=== PATIENT | male | born 1950 | race Caucasian/White ===

== ENCOUNTER 2017-08-20 20:16 | Inpatient (IN) | payer MEDICARE, MEDICAID ==
[~2017-08-20] VITALS: Ht 185.4 cm; Wt 129.6 kg
[2017-08-20 21:30] LABS: BASOPHILS % (AUTO) 0.3 % (0-1); EOSINOPHILS # (AUTO) 0.1 X10'3 (0-0.9); EOSINOPHILS % (AUTO) 2.2 % (0-6); HEMATOCRIT 25.7 % (42.0-52.0); HEMOGLOBIN 8.2 g/dl (14.0-17.9); LYMPHOCYTES # (AUTO) 0.3 X10'3 (1.1-4.8); LYMPHOCYTES % (AUTO) 8.5 % (21-51); MEAN CORPUSCULAR HEMOGLOBIN 26.5 PG (27.0-31.0); MEAN CORPUSCULAR HGB CONC 31.8 % (33.0-36.5); MEAN CORPUSCULAR VOLUME 83.2 FL (78-98); MONOCYTES # (AUTO) 0.5 X10'3 (0-0.9); MONOCYTES % (AUTO) 13.6 % (2-12); NEUTROPHILS # (AUTO) 2.9 X10'3 (1.8-7.7); NEUTROPHILS % (AUTO) 75.4 % (42-75); PLATELET COUNT 155 X10'3 (140-440); RED BLOOD COUNT 3.09 X10'6 (4.70-6.10); RED CELL DISTRIBUTION WIDTH 21.6 % (11.5-14.5); WHITE BLOOD COUNT 3.9 X10'3 (4.5-11.0)
[2017-08-20] MEDS ORDERED: doxycycline hyclate 100mg tablet.DR PO STA (21:37)
[2017-08-20] MEDS ORDERED: bacitracin 15gm ointment TP ONE (21:40)
[2017-08-20 21:48] LABS: ALANINE AMINOTRANSFERASE 17 U/L (12-78); ALBUMIN 2.8 G/DL (3.4-5.0); ALBUMIN/GLOBULIN RATIO 0.6 (1.1-1.5); ALKALINE PHOSPHATASE 146 IU/L (46-116); ANION GAP 12 (8-16); ASPARTATE AMINO TRANSFERASE 15 U/L (10-37); BILIRUBIN,TOTAL 1.4 MG/DL (0.1-1.0); BLOOD UREA NITROGEN 85 MG/DL (7-18); BUN/CREATININE RATIO 20.3 (5.4-32.0); CALCIUM 8.9 MG/DL (8.5-10.1); CHLORIDE 101 MMOL/L (99-107); CREATININE 4.19 MG/DL (0.60-1.10); GLUCOSE 120 MG/DL (70-104); SODIUM 139 MMOL/L (135-145); TOTAL CARBON DIOXIDE 26.2 MMOL/L (24-32); TOTAL PROTEIN 7.2 G/DL (6.4-8.2); eGFR 14 ML/MIN
[2017-08-20] MEDS ORDERED: haloperidol lactate 5mg/ml inj IM ONE (21:50)
[2017-08-20] MEDS ORDERED: diphenhydrAMINE 50 mg/ml inj IM ONE (21:50)
[2017-08-20] MEDS ORDERED: LORazepam 2 mg/ml vial IM ONE (21:50)
[2017-08-20 21:58] LABS: MAGNESIUM 2.2 MG/DL (1.5-2.4)
[2017-08-20] MEDS ORDERED: NORMAL SALINE IV STA (22:17)
[2017-08-20] MEDS ORDERED: ACYCLOVIR IV STA (22:17)
[2017-08-20] MEDS ORDERED: CefTRIAXone 2gm/D5W 50ml 50 ML IV ONE (22:20)
[2017-08-20] MEDS ORDERED: doxycycline hyclate 100mg tablet.DR PO ONE (23:00)
[2017-08-20] MEDS ORDERED: ondansetron/PF 4mg/2ml inj IV PRN (23:55)
[2017-08-20] MEDS ORDERED: magnesium hydroxide 30ml (MOM) UD suspension PO PRN (23:55)
[2017-08-20] MEDS ORDERED: acetaminophen 325mg tablet PO PRN (23:55)
[2017-08-20] MEDS ORDERED: mag hydrox/Alum hydrox/simeth 30ml oral suspension PO PRN (23:55)
[2017-08-21] VITALS (14 sets, daily range): BP systolic 106–150; BP diastolic 57–87
[2017-08-21] MEDS ORDERED: AMIO200T57 PO (01:44)
[2017-08-21] MEDS ORDERED: ASPI81TA30 PO (01:44)
[2017-08-21] MEDS ORDERED: FURO80TA3 PO (01:44)
[2017-08-21] MEDS ORDERED: GLIP5TAB13 PO (01:44)
[2017-08-21] MEDS ORDERED: CARV25TA2 PO (01:44)
[2017-08-21] MEDS ORDERED: GABA-532 PO (01:44)
[2017-08-21] MEDS ORDERED: ATOR-2 PO (01:44)
[2017-08-21] MEDS ORDERED: TAMS0.4C32 PO (01:44)
[2017-08-21] MEDS ORDERED: FINA5TAB11 PO (01:44)
[2017-08-21] MEDS ORDERED: CHOL400T14 PO (01:44)
[2017-08-21] MEDS ORDERED: INSU100V9 SQ (01:44)
[2017-08-21] MEDS ORDERED: dextrose 50%-water 50ml dispensing syringe IV PRN ×2 (02:05)
[2017-08-21] MEDS ORDERED: MESSAGE TO PHARMACY PO ONE (02:05)
[2017-08-21] MEDS ORDERED: glucagon, human recombinant 1mg kit SUBCUT PRN (02:05)
[2017-08-21] MEDS ORDERED: dextrose ORAL solution 15 GM/59 ML bottle PO PRN ×2 (02:05)
[2017-08-21 05:28] LABS: BASOPHILS % (AUTO) 0.5 % (0-1); EOSINOPHILS # (AUTO) 0.1 X10'3 (0-0.9); EOSINOPHILS % (AUTO) 3.2 % (0-6); HEMATOCRIT 23.1 % (42.0-52.0); HEMOGLOBIN 7.7 g/dl (14.0-17.9); LYMPHOCYTES # (AUTO) 0.3 X10'3 (1.1-4.8); LYMPHOCYTES % (AUTO) 7.8 % (21-51); MEAN CORPUSCULAR HEMOGLOBIN 27.5 PG (27.0-31.0); MEAN CORPUSCULAR HGB CONC 33.4 % (33.0-36.5); MEAN CORPUSCULAR VOLUME 82.4 FL (78-98); MEAN PLATELET VOLUME 7.8 FL (7.4-10.4); MONOCYTES # (AUTO) 0.6 X10'3 (0-0.9); MONOCYTES % (AUTO) 15.8 % (2-12); NEUTROPHILS # (AUTO) 2.9 X10'3 (1.8-7.7); NEUTROPHILS % (AUTO) 72.7 % (42-75); PLATELET COUNT 145 X10'3 (140-440); RED CELL DISTRIBUTION WIDTH 21.5 % (11.5-14.5)
[2017-08-21 05:49] LABS: HEMOGLOBIN A1C 6.5 % (4.5-6.2)
[2017-08-21 06:05] LABS: ALANINE AMINOTRANSFERASE 17 U/L (12-78); ALBUMIN 2.5 G/DL (3.4-5.0); ALBUMIN/GLOBULIN RATIO 0.6 (1.1-1.5); ALKALINE PHOSPHATASE 137 IU/L (46-116); ANION GAP 11 (8-16); ASPARTATE AMINO TRANSFERASE 14 U/L (10-37); BILIRUBIN,TOTAL 1.3 MG/DL (0.1-1.0); BLOOD UREA NITROGEN 87 MG/DL (7-18); BUN/CREATININE RATIO 20.3 (5.4-32.0); CHLORIDE 102 MMOL/L (99-107); CREATININE 4.29 MG/DL (0.60-1.10); GLUCOSE 155 MG/DL (70-104); POTASSIUM 3.8 MMOL/L (3.5-5.1); SODIUM 139 MMOL/L (135-145); TOTAL CARBON DIOXIDE 26.3 MMOL/L (24-32); TOTAL PROTEIN 6.7 G/DL (6.4-8.2); eGFR 14 ML/MIN
[2017-08-21] MEDS ORDERED: amiodarone 200mg tablet PO SCH (08:00)
[2017-08-21] MEDS: heparin, porcine 5000 units/ml vial SQ SCH ×2 (08:00→21:12)
[2017-08-21] MEDS ORDERED: finasteride 5mg tablet PO SCH (08:00)
[2017-08-21] MEDS ORDERED: carVEDilol 12.5mg tablet PO SCH ×2 (08:00)
[2017-08-21] MEDS ORDERED: tamsulosin 0.4mg capsule PO SCH (08:00)
[2017-08-21] MEDS: amiodarone 200mg tablet PO SCH (09:15)
[2017-08-21] MEDS: finasteride 5mg tablet PO SCH (09:16)
[2017-08-21] MEDS: aspirin 81mg tab.chew PO SCH (09:16)
[2017-08-21] MEDS: atorvastatin 20mg tablet PO SCH (09:16)
[2017-08-21] MEDS: ciprofloxacin 250mg tablet PO SCH (12:56)
[2017-08-21] MEDS ORDERED: FISH1CAP15 PO (13:22)
[2017-08-21] MEDS: DOBUTamine-DoBUTrex 500mg/D5W 250 ML IV SCH (20:52)
[2017-08-21] MEDS: insulin glargine (Lantus) pen - multi-dose SQ SCH (21:00)
[2017-08-21] MEDS: tamsulosin 0.4mg capsule PO SCH (21:10)
[2017-08-21] MEDS: carVEDilol 12.5mg tablet PO SCH (21:12)
[2017-08-21] MEDS: furosemide 20 MG/2 ML vial IV SCH (21:18)
[2017-08-22] VITALS (12 sets, daily range): BP systolic 107–157; BP diastolic 54–94
[2017-08-22] MEDS: ciprofloxacin 250mg tablet PO SCH (05:28)
[2017-08-22 06:04] LABS: BASOPHILS % (AUTO) 0.6 % (0-1); EOSINOPHILS # (AUTO) 0.1 X10'3 (0-0.9); EOSINOPHILS % (AUTO) 2.2 % (0-6); HEMATOCRIT 22.7 % (42.0-52.0); HEMOGLOBIN 7.4 g/dl (14.0-17.9); LYMPHOCYTES # (AUTO) 0.3 X10'3 (1.1-4.8); LYMPHOCYTES % (AUTO) 5.8 % (21-51); MEAN CORPUSCULAR HEMOGLOBIN 27.1 PG (27.0-31.0); MEAN CORPUSCULAR HGB CONC 32.6 % (33.0-36.5); MEAN CORPUSCULAR VOLUME 83.1 FL (78-98); MEAN PLATELET VOLUME 8.1 FL (7.4-10.4); MONOCYTES # (AUTO) 0.6 X10'3 (0-0.9); NEUTROPHILS # (AUTO) 3.4 X10'3 (1.8-7.7); NEUTROPHILS % (AUTO) 77.4 % (42-75); PLATELET COUNT 146 X10'3 (140-440); RED BLOOD COUNT 2.73 X10'6 (4.70-6.10); RED CELL DISTRIBUTION WIDTH 21.7 % (11.5-14.5); WHITE BLOOD COUNT 4.4 X10'3 (4.5-11.0)
[2017-08-22 06:18] LABS: ALANINE AMINOTRANSFERASE 13 U/L (12-78); ALBUMIN 2.5 G/DL (3.4-5.0); ALBUMIN/GLOBULIN RATIO 0.6 (1.1-1.5); ALKALINE PHOSPHATASE 130 IU/L (46-116); ANION GAP 12 (8-16); ASPARTATE AMINO TRANSFERASE 12 U/L (10-37); BILIRUBIN,TOTAL 1.4 MG/DL (0.1-1.0); BLOOD UREA NITROGEN 82 MG/DL (7-18); BUN/CREATININE RATIO 20.3 (5.4-32.0); CALCIUM 8.8 MG/DL (8.5-10.1); CHLORIDE 102 MMOL/L (99-107); CREATININE 4.03 MG/DL (0.60-1.10); GLUCOSE 140 MG/DL (70-104); POTASSIUM 3.5 MMOL/L (3.5-5.1); SODIUM 139 MMOL/L (135-145); TOTAL CARBON DIOXIDE 25.3 MMOL/L (24-32); TOTAL PROTEIN 6.7 G/DL (6.4-8.2); eGFR 15 ML/MIN
[2017-08-22] MEDS: furosemide 20 MG/2 ML vial IV SCH ×2 (08:27→19:49)
[2017-08-22] MEDS: amiodarone 200mg tablet PO SCH (08:28)
[2017-08-22] MEDS: finasteride 5mg tablet PO SCH (08:29)
[2017-08-22] MEDS: atorvastatin 20mg tablet PO SCH (08:29)
[2017-08-22] MEDS: carVEDilol 12.5mg tablet PO SCH ×2 (08:29→19:49)
[2017-08-22] MEDS: aspirin 81mg tab.chew PO SCH (08:29)
[2017-08-22] MEDS: tamsulosin 0.4mg capsule PO SCH (19:49)
[2017-08-22] MEDS: DOBUTamine-DoBUTrex 500mg/D5W 250 ML IV SCH (19:49)
[2017-08-22] MEDS: insulin glargine (Lantus) pen - multi-dose SQ SCH (21:00)
[2017-08-23] VITALS (8 sets, daily range): BP systolic 131–148; BP diastolic 63–90
[2017-08-23] MEDS: ciprofloxacin 250mg tablet PO SCH ×2 (00:12→19:12)
[2017-08-23 05:48] LABS: BASOPHILS % (AUTO) 0.5 % (0-1); EOSINOPHILS % (AUTO) 0 % (0-6); HEMATOCRIT 22.9 % (42.0-52.0); HEMOGLOBIN 7.5 g/dl (14.0-17.9); LYMPHOCYTES # (AUTO) 0.3 X10'3 (1.1-4.8); LYMPHOCYTES % (AUTO) 5.5 % (21-51); MEAN CORPUSCULAR HEMOGLOBIN 27.1 PG (27.0-31.0); MEAN CORPUSCULAR HGB CONC 32.7 % (33.0-36.5); MEAN CORPUSCULAR VOLUME 82.9 FL (78-98); MEAN PLATELET VOLUME 7.8 FL (7.4-10.4); MONOCYTES # (AUTO) 0.7 X10'3 (0-0.9); MONOCYTES % (AUTO) 13.9 % (2-12); NEUTROPHILS # (AUTO) 3.8 X10'3 (1.8-7.7); NEUTROPHILS % (AUTO) 80.1 % (42-75); PLATELET COUNT 146 X10'3 (140-440); RED BLOOD COUNT 2.76 X10'6 (4.70-6.10); RED CELL DISTRIBUTION WIDTH 21.4 % (11.5-14.5); WHITE BLOOD COUNT 4.8 X10'3 (4.5-11.0)
[2017-08-23 05:51] LABS: ALANINE AMINOTRANSFERASE 15 U/L (12-78); ALBUMIN 2.5 G/DL (3.4-5.0); ALBUMIN/GLOBULIN RATIO 0.6 (1.1-1.5); ALKALINE PHOSPHATASE 131 IU/L (46-116); ANION GAP 10 (8-16); ASPARTATE AMINO TRANSFERASE 11 U/L (10-37); BILIRUBIN,TOTAL 1.3 MG/DL (0.1-1.0); BLOOD UREA NITROGEN 75 MG/DL (7-18); BUN/CREATININE RATIO 20.3 (5.4-32.0); CALCIUM 8.6 MG/DL (8.5-10.1); CHLORIDE 103 MMOL/L (99-107); GLUCOSE 167 MG/DL (70-104); POTASSIUM 3.4 MMOL/L (3.5-5.1); SODIUM 140 MMOL/L (135-145); TOTAL CARBON DIOXIDE 26.8 MMOL/L (24-32); TOTAL PROTEIN 6.7 G/DL (6.4-8.2); eGFR 17 ML/MIN
[2017-08-23] MEDS: finasteride 5mg tablet PO SCH (07:34)
[2017-08-23] MEDS: atorvastatin 20mg tablet PO SCH (07:34)
[2017-08-23] MEDS: aspirin 81mg tab.chew PO SCH (07:35)
[2017-08-23] MEDS: furosemide 20 MG/2 ML vial IV SCH ×2 (07:35→21:08)
[2017-08-23] MEDS: amiodarone 200mg tablet PO SCH (07:35)
[2017-08-23] MEDS: carVEDilol 12.5mg tablet PO SCH ×2 (07:35→20:55)
[2017-08-23] MEDS: DOBUTamine-DoBUTrex 500mg/D5W 250 ML IV SCH ×2 (09:00→13:13)
[2017-08-23] MEDS: insulin Lispro (HumaLOG) vial - multi-dose SQ SCH ×2 (13:21→19:46)
[2017-08-23] MEDS: lactobacillus rhamnosus 10,000 MMU CELLS/CAPSULE PO SCH (20:55)
[2017-08-23] MEDS: tamsulosin 0.4mg capsule PO SCH (20:56)
[2017-08-23] MEDS: insulin glargine (Lantus) pen - multi-dose SQ SCH (21:00)
[2017-08-24] VITALS (13 sets, daily range): BP systolic 111–146; BP diastolic 59–80
[2017-08-24 05:48] LABS: BASOPHILS % (AUTO) 0.7 % (0-1); EOSINOPHILS # (AUTO) 0.1 X10'3 (0-0.9); HEMATOCRIT 22.9 % (42.0-52.0); HEMOGLOBIN 7.4 g/dl (14.0-17.9); LYMPHOCYTES # (AUTO) 0.3 X10'3 (1.1-4.8); LYMPHOCYTES % (AUTO) 6.3 % (21-51); MEAN CORPUSCULAR HEMOGLOBIN 26.9 PG (27.0-31.0); MEAN CORPUSCULAR HGB CONC 32.5 % (33.0-36.5); MEAN CORPUSCULAR VOLUME 82.9 FL (78-98); MEAN PLATELET VOLUME 8.1 FL (7.4-10.4); MONOCYTES # (AUTO) 0.7 X10'3 (0-0.9); MONOCYTES % (AUTO) 15.8 % (2-12); NEUTROPHILS # (AUTO) 3.3 X10'3 (1.8-7.7); NEUTROPHILS % (AUTO) 74.2 % (42-75); PLATELET COUNT 148 X10'3 (140-440); RED BLOOD COUNT 2.76 X10'6 (4.70-6.10); RED CELL DISTRIBUTION WIDTH 21.3 % (11.5-14.5); WHITE BLOOD COUNT 4.4 X10'3 (4.5-11.0)
[2017-08-24 06:27] LABS: ALANINE AMINOTRANSFERASE 15 U/L (12-78); ALBUMIN 2.6 G/DL (3.4-5.0); ALBUMIN/GLOBULIN RATIO 0.6 (1.1-1.5); ALKALINE PHOSPHATASE 131 IU/L (46-116); ANION GAP 10 (8-16); ASPARTATE AMINO TRANSFERASE 14 U/L (10-37); BILIRUBIN,TOTAL 1.2 MG/DL (0.1-1.0); BLOOD UREA NITROGEN 71 MG/DL (7-18); BUN/CREATININE RATIO 20.2 (5.4-32.0); CHLORIDE 104 MMOL/L (99-107); CREATININE 3.51 MG/DL (0.60-1.10); GLUCOSE 154 MG/DL (70-104); POTASSIUM 3.3 MMOL/L (3.5-5.1); SODIUM 141 MMOL/L (135-145); TOTAL CARBON DIOXIDE 27.4 MMOL/L (24-32); TOTAL PROTEIN 6.7 G/DL (6.4-8.2); eGFR 18 ML/MIN
[2017-08-24] MEDS: DOBUTamine-DoBUTrex 500mg/D5W 250 ML IV SCH ×2 (07:40→18:00)
[2017-08-24] MEDS: amiodarone 200mg tablet PO SCH (08:03)
[2017-08-24] MEDS: aspirin 81mg tab.chew PO SCH (08:03)
[2017-08-24] MEDS: furosemide 20 MG/2 ML vial IV SCH ×2 (08:03→20:38)
[2017-08-24] MEDS: atorvastatin 20mg tablet PO SCH (08:04)
[2017-08-24] MEDS: lactobacillus rhamnosus 10,000 MMU CELLS/CAPSULE PO SCH ×2 (08:04→20:38)
[2017-08-24] MEDS: finasteride 5mg tablet PO SCH (08:05)
[2017-08-24] MEDS: carVEDilol 12.5mg tablet PO SCH ×2 (08:06→20:38)
[2017-08-24] MEDS: insulin Lispro (HumaLOG) vial - multi-dose SQ SCH ×3 (08:25→19:28)
[2017-08-24] MEDS ORDERED: magnesium Cl slow-release 64mg tablet PO PRN (10:15)
[2017-08-24] MEDS ORDERED: potassium Cl 20 mEq SR tablet PO PRN (10:15)
[2017-08-24] MEDS ORDERED: magnesium 4gm in 100ml NS 100 ML IV PRN (10:15)
[2017-08-24] MEDS ORDERED: potassium Cl 40MEQ/NS 500ml 500 ML IV PRN ×2 (10:15)
[2017-08-24] MEDS ORDERED: magnesium/D5W IVPB 100 ML IV PRN (10:15)
[2017-08-24] MEDS: potassium Cl 20 mEq SR tablet PO PRN ×2 (11:37→19:35)
[2017-08-24] MEDS: ciprofloxacin 250mg tablet PO SCH (11:37)
[2017-08-24 11:43] LABS: ANISOCYTOSIS 3+; PLATELET ESTIMATE NORMAL
[2017-08-24 11:44] LABS: BURR CELLS FEW; ELLIPTOCYTES FEW; SCHISTOCYTES FEW; STOMATOCYTES FEW
[2017-08-24] MEDS: tamsulosin 0.4mg capsule PO SCH (20:38)
[2017-08-24] MEDS: insulin glargine (Lantus) pen - multi-dose SQ SCH (20:50)
[2017-08-25] MEDS: potassium Cl 20 mEq SR tablet PO PRN (01:27)
[2017-08-25 02:00] VITALS: BP 124/73
[2017-08-25 06:00] VITALS: BP 136/80
[2017-08-25 06:11] LABS: ALANINE AMINOTRANSFERASE 14 U/L (12-78); ALBUMIN 2.6 G/DL (3.4-5.0); ALBUMIN/GLOBULIN RATIO 0.6 (1.1-1.5); ALKALINE PHOSPHATASE 133 IU/L (46-116); ANION GAP 9 (8-16); ASPARTATE AMINO TRANSFERASE 14 U/L (10-37); BILIRUBIN,TOTAL 1.2 MG/DL (0.1-1.0); BLOOD UREA NITROGEN 68 MG/DL (7-18); BUN/CREATININE RATIO 19.4 (5.4-32.0); CHLORIDE 105 MMOL/L (99-107); GLUCOSE 128 MG/DL (70-104); POTASSIUM 3.8 MMOL/L (3.5-5.1); SODIUM 141 MMOL/L (135-145); TOTAL CARBON DIOXIDE 26.6 MMOL/L (24-32); TOTAL PROTEIN 6.8 G/DL (6.4-8.2); eGFR 18 ML/MIN
[2017-08-25 06:23] LABS: BASOPHILS % (AUTO) 0.8 % (0-1); EOSINOPHILS # (AUTO) 0.3 X10'3 (0-0.9); EOSINOPHILS % (AUTO) 5.5 % (0-6); HEMATOCRIT 24.9 % (42.0-52.0); LYMPHOCYTES # (AUTO) 0.3 X10'3 (1.1-4.8); MEAN CORPUSCULAR HEMOGLOBIN 26.9 PG (27.0-31.0); MEAN CORPUSCULAR HGB CONC 32.1 % (33.0-36.5); MEAN CORPUSCULAR VOLUME 83.7 FL (78-98); MEAN PLATELET VOLUME 8.4 FL (7.4-10.4); MONOCYTES # (AUTO) 0.7 X10'3 (0-0.9); MONOCYTES % (AUTO) 14.5 % (2-12); NEUTROPHILS # (AUTO) 3.4 X10'3 (1.8-7.7); NEUTROPHILS % (AUTO) 72.2 % (42-75); PLATELET COUNT 145 X10'3 (140-440); RED BLOOD COUNT 2.97 X10'6 (4.70-6.10); RED CELL DISTRIBUTION WIDTH 19.9 % (11.5-14.5); WHITE BLOOD COUNT 4.7 X10'3 (4.5-11.0)
[2017-08-25] MEDS: carVEDilol 12.5mg tablet PO SCH (07:06)
[2017-08-25] MEDS: amiodarone 200mg tablet PO SCH (07:07)
[2017-08-25] MEDS: ciprofloxacin 250mg tablet PO SCH (07:08)
[2017-08-25] MEDS: lactobacillus rhamnosus 10,000 MMU CELLS/CAPSULE PO SCH (07:08)
[2017-08-25] MEDS: atorvastatin 20mg tablet PO SCH (07:09)
[2017-08-25] MEDS: furosemide 20 MG/2 ML vial IV SCH (07:09)
[2017-08-25] MEDS: finasteride 5mg tablet PO SCH (08:56)
[2017-08-25] MEDS: aspirin 81mg tab.chew PO SCH (08:56)
[2017-08-25] MEDS: insulin Lispro (HumaLOG) vial - multi-dose SQ SCH ×2 (08:58→13:03)
[2017-08-25] MEDS ORDERED: diphenhydrAMINE 25 MG/10 ML UD oral solution PO PRN (10:20)
[2017-08-25 11:00] VITALS: BP 115/67
[2017-08-25] MEDS ORDERED: FURO20TA4 PO (14:45)
[2017-08-25] MEDS ORDERED: APIX5TAB3 PO (14:45)
[2017-08-25] MEDS ORDERED: CARV-50 PO (14:45)
[2017-08-25 15:00] VITALS: BP 129/74
[2017-08-25] MEDS ORDERED: insulin glargine (Lantus) pen - multi-dose SQ SCH (21:00)
== END 2017-08-25 16:30 | disposition home health service (06) | DRG 682 ==
LOC: ER 20:16 → ED HOLD 23:55 → EDBEDREQ 08-21 00:18 → PCU 3S 08-21 00:30
PROVIDERS: ADMIT Internal Medicine; ATTEND Internal Medicine
PROC: 5A09357 Assistance with Respiratory Ventilation, Less than 24 Consecutive Hours, Continuous Positive Airway Pressure (ICD-10-PCS; principal; 2017-08-23)
DX: N17.9 Acute kidney failure, unspecified (principal); I50.23 Acute on chronic systolic (congestive) heart failure; I13.0 Hypertensive heart and chronic kidney disease with heart failure and stage 1 through stage 4 chronic kidney disease, or unspecified chronic kidney disease; I42.9 Cardiomyopathy, unspecified; I48.0 Paroxysmal atrial fibrillation; I25.10 Atherosclerotic heart disease of native coronary artery without angina pectoris; E66.9 Obesity, unspecified; N18.9 Chronic kidney disease, unspecified; D64.9 Anemia, unspecified; E11.22 Type 2 diabetes mellitus with diabetic chronic kidney disease; R00.1 Bradycardia, unspecified; I08.1 Rheumatic disorders of both mitral and tricuspid valves; E78.5 Hyperlipidemia, unspecified; G47.30 Sleep apnea, unspecified; I27.20 Pulmonary hypertension, unspecified; M17.0 Bilateral primary osteoarthritis of knee; Z95.1 Presence of aortocoronary bypass graft; I25.2 Old myocardial infarction; Z88.2 Allergy status to sulfonamides; Z79.899 Other long term (current) drug therapy; Z79.82 Long term (current) use of aspirin; Z79.84 Long term (current) use of oral hypoglycemic drugs; S80.922D Unspecified superficial injury of left lower leg, subsequent encounter; Z87.891 Personal history of nicotine dependence; Z68.37 Body mass index [BMI] 37.0-37.9, adult
CPT/HCPCS: 36415; 71045; 76775; 80053; 82948; 83036; 83735; 83880; 84443; 84484; 85025; 87070; 93005; 93306; 97116; 97530; 99285; A4649; A6196; A6212; A6449; A9270; J0133; J1250; J1644; J1815; J1940; J7040; Q0163

== ENCOUNTER 2018-04-02 07:52 | Day surgery (SDC) | payer MEDICARE, MEDICAID ==
[~2018-04-02] VITALS: Ht 185.4 cm; Wt 123.7 kg
[~2018-04-02 07:52] MED LIST: AMIO200T40 PO; APIX5TAB3 PO; ATOR-2 PO; CARV-50 PO; CHOL400T14 PO; FINA5TAB11 PO; FURO20TA4 PO; GABA-532 PO; GLIP5TAB13 PO; INSU100V9 SQ; LIDOcaine 1% 30ml preserv. free vial SQ STA; TAMS0.4C32 PO
[2018-04-02] MEDS ORDERED: albumin 25% 50mL bottle X 2 BOTTLES IV ONE (08:10)
[2018-04-02] MEDS ORDERED: normal saline 1000ml 1,000 ML IV PRN (08:10)
[2018-04-02 08:11] VITALS: BP 103/69
[2018-04-02] MEDS ORDERED: AMIO100T4 PO (08:26)
[2018-04-02] MEDS ORDERED: DOCU-28 PO (08:26)
[2018-04-02] MEDS ORDERED: HYDR-4069 PO (08:26)
[2018-04-02] MEDS ORDERED: LORA10TA7 PO (08:26)
[2018-04-02] MEDS ORDERED: CARV-50 PO (08:26)
[2018-04-02] MEDS ORDERED: VITA-268 PO (08:26)
[2018-04-02] MEDS ORDERED: ISOS30TA9 PO (08:26)
[2018-04-02] MEDS ORDERED: APIX2.5T PO (08:26)
[2018-04-02] MEDS ORDERED: PER5325T PO (08:26)
[2018-04-02] MEDS ORDERED: FURO80TA3 PO (08:26)
== END 2018-04-02 08:25 | disposition home or self-care (01) ==
LOC: SSTAY O 07:52
PROVIDERS: ATTEND Radiology Diagnostic Radiology
DX: R18.8 Other ascites (principal); Z88.2 Allergy status to sulfonamides; Z79.899 Other long term (current) drug therapy; Z98.890 Other specified postprocedural states
CPT/HCPCS: 76705; J3490; J7030

== ENCOUNTER 2018-04-04 07:37 | Day surgery (SDC) | payer MEDICARE, MEDICAID ==
[2018-04-04] VITALS (8 sets, daily range): BP systolic 102–107; BP diastolic 72–85
[~2018-04-04] VITALS: Ht 185.4 cm; Wt 123.0 kg
[~2018-04-04 07:37] MED LIST changes: +AMIO100T4 PO; -AMIO200T40 PO; +APIX2.5T PO; -APIX5TAB3 PO; +DOCU-28 PO; -FURO20TA4 PO; +FURO80TA3 PO; -GABA-532 PO; -GLIP5TAB13 PO; +HYDR-4069 PO; -INSU100V9 SQ; +ISOS30TA9 PO; -LIDOcaine 1% 30ml preserv. free vial SQ STA; +LORA10TA7 PO; +PER5325T PO; +VITA-268 PO
[2018-04-04] MEDS ORDERED: normal saline 1000ml 1,000 ML IV PRN (08:05)
[2018-04-04] MEDS ORDERED: albumin 25% 50mL bottle X 2 BOTTLES IV ONE ×2 (08:05→09:50)
[2018-04-04] MEDS ORDERED: LIDOcaine 1% 30ml preserv. free vial SQ ONE (09:00)
== END 2018-04-04 10:25 | disposition home or self-care (01) ==
LOC: SSTAY O 07:37
PROVIDERS: ATTEND Radiology Vascular & Interventional Radiology
DX: R18.8 Other ascites (principal); K74.69 Other cirrhosis of liver; I13.0 Hypertensive heart and chronic kidney disease with heart failure and stage 1 through stage 4 chronic kidney disease, or unspecified chronic kidney disease; E11.22 Type 2 diabetes mellitus with diabetic chronic kidney disease; N18.3 Chronic kidney disease, stage 3 (moderate); I50.9 Heart failure, unspecified; I48.91 Unspecified atrial fibrillation; E66.01 Morbid (severe) obesity due to excess calories; Z87.39 Personal history of other diseases of the musculoskeletal system and connective tissue; Z68.35 Body mass index [BMI] 35.0-35.9, adult; Z86.74 Personal history of sudden cardiac arrest; Z86.79 Personal history of other diseases of the circulatory system; Z87.891 Personal history of nicotine dependence; Z79.01 Long term (current) use of anticoagulants; Z79.891 Long term (current) use of opiate analgesic; Z88.2 Allergy status to sulfonamides; Z95.1 Presence of aortocoronary bypass graft; Z79.899 Other long term (current) drug therapy; Z98.890 Other specified postprocedural states
CPT/HCPCS: 49083; J3490; J7030; P9047

== ENCOUNTER 2018-05-07 08:00 | Day surgery (SDC) | payer MEDICARE, MEDICAID ==
[~2018-05-07] VITALS: Ht 185.4 cm; Wt 115.3 kg
[2018-05-07 08:30] VITALS: BP 96/72
[2018-05-07] MEDS ORDERED: LIDOcaine 1% 30ml preserv. free vial SQ ONE (08:30)
[2018-05-07 08:45] VITALS: BP 100/75
[2018-05-07] MEDS ORDERED: normal saline 1000ml 1,000 ML IV PRN (08:55)
[2018-05-07 09:00] VITALS: BP 108/68
[2018-05-07] MEDS ORDERED: albumin (human) 25% 100 ML IV solution IV PRN (09:00)
[2018-05-07 09:15] VITALS: BP 89/54
[2018-05-07 09:30] VITALS: BP 107/68
[2018-05-07 09:45] VITALS: BP 119/58
== END 2018-05-07 10:00 | disposition home or self-care (01) ==
LOC: SSTAY O 08:00
PROVIDERS: ATTEND Radiology Diagnostic Radiology
DX: R18.8 Other ascites (principal); K76.9 Liver disease, unspecified; Z88.2 Allergy status to sulfonamides
CPT/HCPCS: 49083; J3490; J7030; P9047

== ENCOUNTER 2018-07-06 08:45 | Day surgery (SDC) | payer MEDICARE, MEDICAID ==
[~2018-07-06] VITALS: Ht 185.4 cm; Wt 109.2 kg
[2018-07-06] MEDS ORDERED: albumin 25% 100mL bottle x 1 IV PRN (09:05)
[2018-07-06] MEDS ORDERED: normal saline 1000ml 1,000 ML IV PRN (09:05)
[2018-07-06 09:25] VITALS: BP 110/80
[2018-07-06] MEDS ORDERED: LIDOcaine 1% 30ml preserv. free vial SQ ONE (09:30)
[2018-07-06 09:40] VITALS: BP 110/80
[2018-07-06 09:41] VITALS: BP 118/79
[2018-07-06 09:56] VITALS: BP 96/65
[2018-07-06 10:11] VITALS: BP 111/78
== END 2018-07-06 10:30 | disposition home or self-care (01) ==
LOC: SSTAY O 08:45
PROVIDERS: ATTEND Radiology Vascular & Interventional Radiology
DX: R18.8 Other ascites (principal); K74.60 Unspecified cirrhosis of liver; I50.9 Heart failure, unspecified; I48.91 Unspecified atrial fibrillation; E11.9 Type 2 diabetes mellitus without complications; Z95.1 Presence of aortocoronary bypass graft; Z79.899 Other long term (current) drug therapy; Z88.2 Allergy status to sulfonamides
CPT/HCPCS: 49083; C1729; J3490; J7030

== ENCOUNTER 2018-10-17 07:40 | Day surgery (SDC) | payer MEDICARE, MEDICAID ==
[~2018-10-17] VITALS: Ht 185.4 cm; Wt 114.9 kg
[2018-10-17 08:00] VITALS: BP 96/78
[2018-10-17] MEDS ORDERED: albumin 25% 100mL bottle x 1 IV PRN (08:00)
[2018-10-17] MEDS ORDERED: normal saline 1000ml 1,000 ML IV PRN (08:05)
[2018-10-17 08:45] VITALS: BP 89/71
[2018-10-17 09:00] VITALS: BP 95/62
[2018-10-17 09:15] VITALS: BP 101/59
[2018-10-17 09:30] VITALS: BP 101/62
[2018-10-17 09:45] VITALS: BP 104/73
== END 2018-10-17 10:20 | disposition home or self-care (01) ==
LOC: SSTAY O 07:40
PROVIDERS: ATTEND Radiology Diagnostic Radiology
DX: R18.8 Other ascites (principal)
CPT/HCPCS: 49083; C1729; J7030; 88108; 88305

== ENCOUNTER 2019-03-25 07:43 | Day surgery (SDC) | payer MEDICARE, MEDICAID ==
[~2019-03-25] VITALS: Ht 185.4 cm; Wt 114.6 kg
[~2019-03-25 07:43] MED LIST changes: -DOCU-28 PO; -HYDR-4069 PO; -ISOS30TA9 PO; -LORA10TA7 PO
[2019-03-25] MEDS ORDERED: normal saline 1000ml 1,000 ML IV PRN (08:00)
[2019-03-25] MEDS ORDERED: albumin 25% 100mL bottle x 1 IV PRN (08:00)
--- NOTE | 2019-03-25 08:00 | NUR ---
no iv needed on this patient Addendum: 03/25/19 at 1123 by Patricia Carmona RN no iv started
[2019-03-25 08:05] VITALS: BP 94/55
--- NOTE | 2019-03-25 09:00 | NUR ---
no fluid per HAMLET Wiley, at bedside.
== END 2019-03-25 09:20 | disposition home or self-care (01) ==
LOC: SSTAY O 07:43
PROVIDERS: ATTEND Radiology Diagnostic Radiology
DX: R18.8 Other ascites (principal); R14.0 Abdominal distension (gaseous)
CPT/HCPCS: 76705; J7030

== ENCOUNTER 2019-08-02 12:29 | Day surgery (SDC) | payer MEDICARE, MEDICAID ==
[~2019-08-02] VITALS: Ht 188 cm; Wt 110.4 kg
[2019-08-02] VITALS (7 sets, daily range): BP systolic 90–102; BP diastolic 45–63
[~2019-08-02 12:29] MED LIST changes: -CHOL400T14 PO
[2019-08-02] MEDS ORDERED: normal saline 1000ml 1,000 ML IV SCH ×2 (12:50→14:11)
[2019-08-02 13:28] LABS: ALBUMIN 3.4 G/DL (3.4-5.0); ANION GAP 20 (8-16); BLOOD UREA NITROGEN 134 MG/DL (7-18); BUN/CREATININE RATIO 10.5 (5.4-32.0); CALCIUM 9.2 MG/DL (8.5-10.1); CHLORIDE 93 MMOL/L (99-107); CREATININE 12.75 MG/DL (0.60-1.10); GLUCOSE 164 MG/DL (70-104); POTASSIUM 5.2 MMOL/L (3.5-5.1); SODIUM 131 MMOL/L (135-145); TOTAL CARBON DIOXIDE 17.7 MMOL/L (24-32); eGFR 4 ML/MIN
[2019-08-02] MEDS ORDERED: LIDOcaine 1%/PF 5ML 10 MG/ML VIAL ONE (13:41)
[2019-08-02] MEDS ORDERED: heparin 1,000unit/ml 10ml vial 10 ML ONE (13:41)
[2019-08-02] MEDS ORDERED: fentaNYL/PF 50MCG/1 ML 2ML syringe ONE ×2 (13:41→15:19)
[2019-08-02 14:04] LABS: PHOSPHORUS 10.7 MG/DL (2.3-4.5)
[2019-08-02] MEDS ORDERED: iohexol 300mg/ml 100ml inj. ONE ×2 (14:12→15:22)
[2019-08-02] MEDS ORDERED: heparin 1,000 UNITS/NS 500ml 500 ML ONE ×2 (14:12→15:22)
[2019-08-02] MEDS ORDERED: diphenhydrAMINE 25mg capsule PO ONE (16:15)
[2019-08-02] MEDS ORDERED: ondansetron/PF 4mg/2ml inj IV ONE (16:20)
[2019-08-02] MEDS ORDERED: ondansetron/PF 4mg/2ml inj ONE (16:22)
== END 2019-08-02 17:15 | disposition home or self-care (01) ==
LOC: SSTAY O 12:29
PROVIDERS: ATTEND Radiology Diagnostic Radiology
DX: T82.868A Thrombosis due to vascular prosthetic devices, implants and grafts, initial encounter (principal); E11.22 Type 2 diabetes mellitus with diabetic chronic kidney disease; N18.9 Chronic kidney disease, unspecified; I25.10 Atherosclerotic heart disease of native coronary artery without angina pectoris; G47.30 Sleep apnea, unspecified; Z88.2 Allergy status to sulfonamides; Z79.899 Other long term (current) drug therapy; Y83.2 Surgical operation with anastomosis, bypass or graft as the cause of abnormal reaction of the patient, or of later complication, without mention of misadventure at the time of the procedure; Y92.89 Other specified places as the place of occurrence of the external cause
CPT/HCPCS: 36415; 36902; 80048; 84100; J1644; J2405; J3010; J7030; Q0163; Q9967

== ENCOUNTER 2020-03-30 07:56 | Day surgery (SDC) | payer MEDICARE, MEDICAID ==
[~2020-03-30] VITALS: Ht 185.4 cm; Wt 120.9 kg
[2020-03-30 08:12] VITALS: BP 128/79
[2020-03-30] MEDS ORDERED: albumin 25% 100mL bottle x 1 IV PRN (08:25)
== END 2020-03-30 09:30 | disposition home or self-care (01) ==
LOC: SSTAY O 07:56
PROVIDERS: ATTEND Radiology Vascular & Interventional Radiology
DX: R18.8 Other ascites (principal); R14.0 Abdominal distension (gaseous); E11.22 Type 2 diabetes mellitus with diabetic chronic kidney disease; N18.6 End stage renal disease; I25.10 Atherosclerotic heart disease of native coronary artery without angina pectoris; G47.30 Sleep apnea, unspecified; Z99.2 Dependence on renal dialysis; I50.9 Heart failure, unspecified; I48.91 Unspecified atrial fibrillation; Z98.890 Other specified postprocedural states; Z88.2 Allergy status to sulfonamides; Z79.899 Other long term (current) drug therapy; Z79.01 Long term (current) use of anticoagulants
CPT/HCPCS: 49083; 76705